=== PATIENT | male | born 1950 | race Caucasian/White ===

== ENCOUNTER 2017-06-20 17:53 | Emergency (ER) | payer MEDICARE, BC ==
[2017-06-20 19:29] VITALS: BP 147/93
[2017-06-20] MEDS ORDERED: Sodium Chloride 0.9% 1,000 ML IV SCH (20:00)
--- NOTE | 2017-06-20 22:36 | EDM.PDOC ---
ED HPI GENERAL MEDICAL PROBLEM - General Chief Complaint: Gastrointestinal Problem Stated Complaint: LEFT SIDE PAIN/BLOODY STOOL Time Seen by Provider: 06/20/17 19:33 Source of Information: Reports: Patient History Limitations: Reports: No Limitations - History of Present Illness INITIAL COMMENTS - FREE TEXT/NARRATIVE: History of present illness: [66-year-old male presenting with left flank pain for several days and also bright red blood per rectum. He noticed blood in his stool around noon today mixed with stool and then this evening he had just bright red blood with clots. He had a colonoscopy in November this year that was normal. Knee does not history of hemorrhoids. 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 He also takes Aleve twice a day and has done so for years he is having some epigastric discomfort. No lightheadedness or dizziness. No fevers or chills cough or cold symptoms chest pain or shortness of breath.] Review of systems: As per history of present illness and below otherwise all systems reviewed and negative. Past medical history: As per history of present illness and as reviewed below otherwise noncontributory. Surgical history: As per history of present illness and as reviewed below otherwise noncontributory. Social history: No reported history of drug or alcohol abuse. Family history: As per history of present illness and as reviewed below otherwise noncontributory. Physical exam: HEENT: Atraumatic, normocephalic, pupils reactive, negative for conjunctival pallor or scleral icterus, mucous membranes moist, throat clear, neck supple, nontender, trachea midline. Lungs: Clear to auscultation, breath sounds equal bilaterally, chest nontender. Heart: S1S2, regular, negative for clicks, rubs, or JVD. Abdomen: He has some mild tenderness to the epigastric area and also the left flank. He has some bruising about the left flank but he states he got that riding a tractor on a bumpy field. Pelvis: Stable nontender. Genitourinary: Deferred. Rectal: Deferred. Extremities: Atraumatic, negative for cords or calf pain. Neurovascular unremarkable. Neuro: Awake, alert, oriented. Cranial nerves II through XII unremarkable. Cerebellum unremarkable. Motor and sensory unremarkable throughout. Exam nonfocal. Diagnostics: [CBC is unremarkable complete metabolic panel is unremarkable other than a creatinine of 1.7 UA is unremarkable. Noncontrast head CT does show evidence for probable recent passage of a 3 mm stone on the left side. Or it may still be lying in the left you VJ he also has mild prominence of the left internal collecting system as well as perinephric and rahul-your total edema on the left which are felt to be related to the stone.] Therapeutics: [Patient received IV fluids while here] Impression: [Left ureteral stone Bright red blood per rectum] Plan: [We've put him on the list to be seen in the clinic. I advised to stop taking his Aleve and that he may need upper and lower endoscopy. The stone has passed into the bladder or is just about to pass and I suspect that won't be giving him any more trouble but it does explain his left flank pain] Definitive disposition and diagnosis as appropriate pending reevaluation and review of above. - Related Data Allergies Allergy/AdvReac Type Severity Reaction Status Date / Time No Known Allergies Allergy Verified 06/20/17 19:16 Home Meds: Home Meds NK [No Known Home Meds] 06/20/17 [History] Past Medical History - Past Surgical History GI Surgical History: Reports: Colonoscopy Other GI Surgeries/Procedures: nov 2016 negative colonoscopy in [place] Social & Family History - Tobacco Use Smoking Status *Q: Never Smoker Second Hand Smoke Exposure: No - Caffeine Use Caffeine Use: Reports: Soda - Recreational Drug Use Recreational Drug Use: No ED ROS GENERAL - Review of Systems Review Of Systems: ROS reveals no pertinent complaints other than HPI. ED EXAM, GENERAL - Physical Exam Exam: See Below Course - Vital Signs Last Recorded V/S: Last Vital Signs Temp 36.6 C 06/20/17 19:19 Pulse 83 06/20/17 19:19 Resp 20 06/20/17 19:19 BP 147/93 H 06/20/17 19:19 Pulse Ox 94 L 06/20/17 19:19 - Orders/Labs/Meds Orders: Active Orders 24 hr Category Date Time Status Abdomen Pelvis w Cont [CT] Stat Exams 06/20/17 21:34 Ordered Abdomen Pelvis wo Cont [CT] Stat Exams 06/20/17 19:46 Taken Sodium Chloride 0.9% [Normal Saline] 1,000 ml Med 06/20/17 20:00 Active IV ASDIRECTED Medication Orders Sodium Chloride (Normal Saline) 1,000 mls @ 250 mls/hr IV ASDIRECTED JARON Last Admin: 06/20/17 20:28 Dose: 250 mls/hr Labs: Laboratory Tests 06/20/17 06/20/17 06/20/17 Range/Units 19:58 19:58 21:13 WBC 9.5 (4.5-11.0) K/uL RBC 5.49 (4.30-5.90) M/uL Hgb 15.2 H (12.0-15.0) g/dL Hct 45.3 (40.0-54.0) % MCV 83 (80-98) fL MCH 28 (27-31) pg MCHC 34 (32-36) % Plt Count 189 (150-400) K/uL Neut % (Auto) 76 H (36-66) % Lymph % (Auto) 13 L (24-44) % [place] % (Auto) 10 H (2-6) % Eos % (Auto) 2 (2-4) % Baso % (Auto) 0 (0-1) % Sodium 138 L (140-148) mmol/L Potassium 4.1 (3.6-5.2) mmol/L Chloride 102 (100-108) mmol/L Carbon Dioxide 29 (21-32) mmol/L Anion Gap 11.1 (5.0-14.0) mmol/L BUN 17 (7-18) mg/dL Creatinine 1.7 H (0.8-1.3) mg/dL Est Cr Clr Drug Dosing 44.13 mL/min Estimated GFR (MDRD) 41 L (>60) Glucose 116 H (74-106) mg/dL Calcium 9.1 (8.5-10.1) mg/dL Total Bilirubin 0.6 (0.2-1.0) mg/dL AST 25 (15-37) U/L ALT 43 (12-78) U/L Alkaline Phosphatase 93 (46-116) U/L Total Protein 8.5 H (6.4-8.2) g/dL Albumin 4.0 (3.4-5.0) g/dL Globulin 4.5 H (2.3-3.5) g/dL Albumin/Globulin Ratio 0.9 L (1.2-2.2) Urine Color Yellow Urine Appearance Clear Urine pH 5.0 (4.5-8.0) Ur Specific [place] 1.020 (1.008-1.030) Urine Protein Negative (NEGATIVE) mg/dL Urine Glucose (UA) Normal (NEGATIVE) mg/dL Urine Ketones Negative (NEGATIVE) mg/dL Urine Occult Blood Moderate (NEGATIVE) Urine Nitrite Negative (NEGAITVE) Urine Bilirubin Negative (NEGATIVE) Urine Urobilinogen Normal (NORMAL) mg/dL Ur Leukocyte Esterase Negative (NEGATIVE) Urine RBC 0-5 (0-5) Urine WBC 0-5 (0-5) Ur Epithelial Cells Rare Amorphous Sediment Rare Urine Bacteria Not seen Urine Mucus Few Meds: Medications Generic Name Dose Route Start Last Admin Trade Name Freq PRN Reason Stop Dose Admin Sodium Chloride 1,000 mls @ 250 mls/hr 06/20/17 20:00 06/20/17 20:28 Normal Saline IV 250 mls/hr ASDIRECTED JARON Administration Departure - Departure Time of Disposition: 22:39 Disposition: Home, Self-Care 01 Condition: Good Clinical Impression: Left ureteral stone, BRBPR (bright red blood per rectum) - Discharge Information Referrals: PCP,None [Primary Care Provider] - Forms: ED Department Discharge Additional Instructions: We've placed you on a list that he'll be faxed to the clinic and you should be getting a phone call for an appointment with a physician so that your epigastric pain and the blood that you're having can be further investigated. As I thought he stated that could be that it be necessary to do upper and lower endoscopy to look into this further. Your kidney stone is either in the bladder or just about to enter the bladder and I don't think this will probably give me any more trouble. - My Orders Last 24 Hours: My Active Orders 06/20/17 19:46 Abdomen Pelvis wo Cont [CT] Stat 06/20/17 20:00 Sodium Chloride 0.9% [Normal Saline] 1,000 ml IV ASDIRECTED 06/20/17 21:34 Abdomen Pelvis w Cont [CT] Stat - Assessment/Plan Last 24 Hours: My Active Orders 06/20/17 19:46 Abdomen Pelvis wo Cont [CT] Stat 06/20/17 20:00 Sodium Chloride 0.9% [Normal Saline] 1,000 ml IV ASDIRECTED 06/20/17 21:34 Abdomen Pelvis w Cont [CT] Stat
== END 2017-06-20 23:11 | disposition home or self-care (01) ==
LOC: JP.ED 17:53
DX: N20.1 Calculus of ureter (principal); K62.5 Hemorrhage of anus and rectum
CPT/HCPCS: 36415; 74176; 80053; 81001; 85025; 96360; 96361; 99284; J7040